=== PATIENT | female | born 1995 | race Caucasian/White ===

== ENCOUNTER 2019-07-31 13:38 | Inpatient (IN) ==
[2019-07-31] MEDS ORDERED: SODIUM CHLORIDE 0.9% 1000ML 1,000 ML IV SCH (14:32)
[2019-07-31] MEDS ORDERED: ACETAMINOPHEN 1,000 MG/100 ML VIAL IV STA (15:24)
[2019-07-31 15:27] LABS: Basophils # (auto) 0.02 K/uL (0-0.2); Basophils % (auto) 0.2 %; Eosinophils # (auto) 0.12 K/uL (0-0.5); Eosinophils % (auto) 1.4 %; Hematocrit (blood only) 41.3 % (37-47); Hemoglobin 14.1 g/dL (12.0-16.0); Immature Granulocytes # (auto) 0.03 K/uL (0.00-0.02); Immature Granulocytes % (auto) 0.3 %; Lymphocytes # (auto) 2.37 K/uL (1.2-3.4); Lymphocytes % (auto) 26.9 %; Mean Corpuscular Hemoglobin 28.9 pg (25-34); Mean Corpuscular Hgb Conc 34.1 g/dL (32-36); Mean Corpuscular Volume 84.6 fL (80-100); Mean Platelet Volume 9.8 fL (7.4-10.4); Monocytes # (auto) 0.48 K/uL (0.11-0.59); Monocytes % (auto) 5.5 %; Neutrophils # (auto) 5.78 K/uL (1.4-6.5); Neutrophils % (auto) 65.7 %; Platelet Count 336 K/uL (130-400); RDW Standard Deviation 39.8 fL (36.4-46.3); Red Blood Count 4.88 M/uL (4.2-5.4)
[2019-07-31 15:45] LABS: Alanine Aminotransferase 22 U/L (12-78); Aspartate Aminotransferase 12 U/L (15-37); BUN Creatinine Ratio 20.3 (10-20); Blood Urea Nitrogen 14 mg/dl (7-18); Calcium 9.4 mg/dl (8.5-10.1); Carbon Dioxide 27 mmol/L (21-32); Chloride 103 mmol/L (98-107); Creatinine Clr Calc Pharmacy 175.2 ml/min; Est GFR (African American) 141.2; Est GFR (Non-African American) 121.8; Glucose 88 mg/dl (70-99); Lipase 80 U/L (73-393); Potassium 4.1 mmol/L (3.5-5.1); Sodium 137 mmol/L (136-145)
[2019-07-31 15:50] LABS: Albumin Globulin Ratio 0.6 (0.9-2); Alkaline Phosphatase 71 U/L (45-117); Bilirubin,Total 0.3 mg/dl (0.2-1); Globulin 4.7 gm/dl (2.5-4.0); Total Protein 7.7 gm/dl (6.4-8.2); Troponin I < 0.015 ng/ml (0-0.045)
[2019-07-31] MEDS ORDERED: OPTIRAY 320 125ml IV PRN (16:05)
--- NOTE | 2019-07-31 16:28 | CT Scan Report ---
CHEST CTA for PULMONARY ARTERIES CT DOSE: 991.32 mGy.cm HISTORY: Positive DVT. Atypical Chest Pain, eval for PE TECHNIQUE: Multiaxial CT images of the chest were performed following the intravenous administration of contrast to evaluate the pulmonary arteries. Maximal intensity projection images were also obtaine d. A dose lowering technique was utilized adhering to the principles of ALARA. COMPARISON STUDY: None. FINDINGS: Multiple scattered small filling defect seen within the segmental and subsegmental patches of the majority of the pulmonary arteries. There is also a small linear nonocclusive filling defect w ithin the right lower lobe pulmonary artery. Findings are consistent with pulmonary embolus. The main pulmonary arteries are patent. No evidence for right-sided heart strain. No pleural or pericardial e ffusions. The heart is normal in size. No mediastinal or hilar lymphadenopathy. Normal esophagus. Hep atic steatosis. The visualized spleen is unremarkable. No fractures within the visualized osseous str uctures. The central airways are patent. No pneumothorax. The lungs are clear. IMPRESSION: Multiple small scattered pulmonary emboli. No evidence for right-sided heart strain. Electronically signed by: Adarsh Wagner M.D. 07/31/2019 4:27 PM
[2019-07-31] MEDS ORDERED: HEPARIN SODIUM/DEXTROSE 25,000 UNITS/500 ML BAG IV SCH (17:00)
[2019-07-31 17:22] LABS: INR 1.1 (0.9-1.1); Partial Thromboplastin Time 27.3 Seconds (21.0-31.0)
[2019-07-31] MEDS ORDERED: Heparin IV Standard *NO* Bolus IV STA (17:23)
--- NOTE | 2019-07-31 17:24 | History & Physical Report ---
Date of Service July 31, 2019 Assessment & Plan (1) Pulmonary embolism: We will start the patient on IV heparin drip per protocol. Consult hematology. We will add tramadol for pain control. Present on Admission?: Yes (2) DVT (deep venous thrombosis): Patient was earlier on Xarelto. Present on Admission?: Yes (3) Morbid obesity with BMI of 60.0-69.9, adult: Advised regarding dietary modifications. Present on Admission?: Yes (4) Chest pain: Chest pain secondary to PE, add tramadol as needed basis. History of Present Illness Chief Complaint: Chest pain Primary Care Provider: Phani Ascencio DO The patient is 23 years old morbidly obese female who was recently diagnosed with right leg DVT on 07/24. She was discharged home on oral Xarelto. Today patient started complaining of right-sided chest pain radiating across the chest. She had associated dyspnea. The further work-up done in the emergency room today shows that the patient has pulmonary embolism. She was started on IV heparin drip and will be admitted for further evaluation and management. No family history of DVT or PE. Her brother has ITP. Patient was on oral contraceptives which she stopped taking last week after she was diagnosed with DVT. Allergies Allergy/AdvReac Type Severity Reaction Status Date / Time No Known Allergies Allergy Unverified 07/31/19 15:41 Home Medications Home Medications Medication Instructions Recorded Confirmed Type rivaroxaban 15 mg PO BID 21 Days #42 tab 07/24/19 07/31/19 Rx acetaminophen [Tylenol Extra 1,000 mg PO Q6H PRN 07/31/19 07/31/19 History Strength] iron 0 mg PO DAILY 07/31/19 07/31/19 History Past Med/Surg History Medical History No pertinent family history No pertinent past medical history Surgical History No pertinent past surgical history Family History Brother Idiopathic thrombocytopenic purpura (ITP) Other No pertinent family history Social History Preferred Language: Peruvian Feels Safe at Home: Yes Smoking Status: Never smoker Review of Systems Review of Systems: All systems reviewed & are unremarkable except as noted in HPI & below Physical Exam Physical Exam: Morbidly obese female GENERAL : No acute distress EYES: No icterus, gaze conjugate NOSE: No evidence of epistaxis MOUTH: No lesions or candidiasis, mucosa moist NECK: Supple LUNGS: CTA B/L, no wheezes, rales or rhonchi HEART: Regular, rate controlled ABDOMEN: Soft, NT, ND, BS Present EXTREMITIES: No LE edema, pedal pulses intact NEURO: A&OX3 Results & Data Vital Signs (Past 12 Hours) Vital Signs Temp Pulse Pulse Resp BP BP Pulse Ox 07/31/19 16:55 83 20 123/66 97 07/31/19 15:17 80 18 140/95 100 07/31/19 13:40 98.1 F 71 18 160/81 H 99 Laboratory Results 07/31/19 15:14 07/31/19 15:14 Diagnostic Findings CHEST CTA for PULMONARY ARTERIES CT DOSE: 991.32 mGy.cm HISTORY: Positive DVT. Atypical Chest Pain, eval for PE TECHNIQUE: Multiaxial CT images of the chest were performed following the intravenous administration of contrast to evaluate the pulmonary arteries. Maximal intensity projection images were also obtained. A dose lowering technique was utilized adhering to the principles of ALARA. COMPARISON STUDY: None. FINDINGS: Multiple scattered small filling defect seen within the segmental and subsegmental patches of the majority of the pulmonary arteries. There is also a small linear nonocclusive filling defect within the right lower lobe pulmonary artery. Findings are consistent with pulmonary embolus. The main pulmonary arteries are patent. No evidence for right-sided heart strain. No pleural or pericardial effusions. The heart is normal in size. No mediastinal or hilar lymphadenopathy. Normal esophagus. Hepatic steatosis. The visualized spleen is unremarkable. No fractures within the visualized osseous structures. The central airways are patent. No pneumothorax. The lungs are clear. IMPRESSION: Multiple small scattered pulmonary emboli. No evidence for right-sided heart strain. Code Status & VTE Plan VTE Prophylaxis Plan VTE Prophylaxis will be ordered: Yes PG Care Time/CCT Total # of Minutes Spent Total Time Spent with Patient: Total time spent is greater than 50% in coordination of care (as documented) at patient's floor/unit and/or counseling patient: 60 min (1) DVT (deep venous thrombosis) Affected thrombotic vein of extremity: peroneal Chronicity: acute DVT location: lower extremity Laterality: right Qualified Code(s): I82.451 - Acute embolism and thrombosis of right peroneal vein
[2019-07-31] MEDS ORDERED: ALUMINUM/MAGNESIUM SUSP 30 ML UDC PO PRN (18:16)
[2019-07-31] MEDS ORDERED: ACETAMINOPHEN 325 MG TAB PO PRN (18:16)
[2019-07-31] MEDS ORDERED: TRAMADOL HCL 50 MG TABLET PO PRN (18:16)
[2019-07-31] MEDS ORDERED: ONDANSETRON INJ 2 MG/ML 2 ML VIAL IV PRN (18:16)
[2019-07-31] MEDS ORDERED: ZOLPIDEM TARTRATE 5 MG TAB PO PRN (18:16)
[2019-07-31] MEDS ORDERED: POLYETHYLENE (MIRALAX) 17 GM PACK PO PRN (18:16)
[2019-07-31] MEDS ORDERED: MAGNESIUM HYDROXIDE SUSP 30 ML UDC PO PRN (18:16)
[2019-07-31] MEDS: HEPARIN SODIUM/DEXTROSE 25,000 UNITS/500 ML BAG IV SCH (18:30)
--- NOTE | 2019-07-31 20:50 | Emergency Department Note ---
General (ED) Blank Date of Service July 31, 2019 I attended to this patient's care in conjunction with Dr. Gilmore; please see his documentation for pertinent details regarding care. : Pulmonary emboli Qualifiers: Pulmonary embolism type: unspecified Chronicity: acute Acute cor pulmonale presence: unspecified Qualified Code(s): I26.99 - Other pulmonary embolism without acute cor pulmonale
--- NOTE | 2019-07-31 22:11 | Emergency Department Note ---
Entered by Kyle Snyder acting as a scribe for Daron Gilmore MD History of Present Illness General Chief complaint: Chest Pain Stated complaint: SEVERE HEADACHES, CHEST PAIN Time Seen by Provider: 07/31/19 14:10 Source: patient History of Present Illness Onset (ago): hour(s) (1.5) Location: chest and right Pain Consistency: + constant Maximum Pain Intensity: 6 Quality: + sharp Associated symptoms: + shortness of breath and + other (dizziness); no cough The patient is a 23 y/o female w/ PMHx DVT who presents to the ED w/ CC of constant, sharp, chest pain beginning 1.5 hours ago. The patient states she was evaluated in the ED last week and diagnosed with a RLE DVT. She reports she was placed on Xarelto and told to avoid strenuous activity. The patient notes she was walking up a flight of stairs today when she developed right sided chest pain that moved to the center of her chest. She states she was short of breath during the on set and did not have a cough. The patient reports for the past few days, she has had an increased frontal headache with some dizziness. Home Medications Home Medications Medication Instructions Recorded Confirmed Type rivaroxaban 15 mg PO BID 21 Days #42 tab 07/24/19 07/31/19 Rx acetaminophen [Tylenol Extra 1,000 mg PO Q6H PRN 07/31/19 07/31/19 History Strength] iron 0 mg PO DAILY 07/31/19 07/31/19 History Allergies Allergy/AdvReac Type Severity Reaction Status Date / Time No Known Allergies Allergy Unverified 07/31/19 15:41 Past Med/Surg History Medical History No pertinent family history No pertinent past medical history Surgical History No pertinent past surgical history Family History Brother Idiopathic thrombocytopenic purpura (ITP) Other No pertinent family history Social History Preferred Language: Bulgarian [employer] Required: No Beliefs That Will Affect Care: None Current Living Situation: Spouse Feels Safe at Home: Yes Smoking Status: Never smoker Hx Alcohol Use: Yes Alcohol type: wine Hx Substance Use: No Review of Systems See HPI for pertinent positives & negatives. and A total of 10 systems reviewed and were otherwise negative Physical Exam Vital Signs Vital Signs - 24 hr 07/31/19 13:40 07/31/19 15:17 Temperature 36.7 C Temperature Source Oral Sepsis Recent Fever Within 48 Hours No Sepsis New/Unexplained Change in Mental Status No Sepsis Action Taken by Nursing No Action Required Pulse Rate 71 Pulse Rate [Apical] 80 Respiratory Rate 18 18 Respiratory Effort / Characteristics Spontaneous Blood Pressure 160/81 H Blood Pressure [Left Arm] 140/95 Blood Pressure Mean 107 Blood Pressure Mean [Left Arm] 110 Blood Pressure Position Sitting Pulse Oximetry 99 100 Oxygen Delivery Method Room Air Room Air GENERAL: Awake, alert, well-appearing, in no distress. BMI of 62.1 kg/m^2 HENT: Normocephalic, atraumatic. Oropharynx unremarkable. EYES: Normal conjunctiva. Sclera non-icteric. NECK: Supple. No nuchal rigidity. FROM. No JVD. RESPIRATORY: CTA bilaterally. CARDIAC: Regular rate, normal rhythm. Extremities warm and well perfused. Pulses equal. ABDOMEN: Soft, non-distended. No tenderness to palpation. No rebound or guarding. No masses. RECTAL: Deferred. MUSCULOSKELETAL: Chest examination reveals no tenderness. The back is symmetrical on inspection without obvious abnormality. There is no CVA tenderness to palpation. No joint edema. LOWER EXTREMITIES: Calves are equal size bilaterally. Tenderness to the RLE. No edema. No discoloration. Positive Cristino's sign for RLE. NEURO: Normal sensorium. No sensory or motor deficits noted. SKIN: No rash or jaundice noted. Course 1421: Past medical records reviewed. The patient was evaluated in room C11B by the resident under my supervision. A complete history and physical exam was performed. 1650: The resident discussed the patient's case with Dr. Coronel, [facility] Hospitalist. He recommended the patient be started on Heparin, and he will evaluate her for further management and care. Administered Medications Heparin Sodium/Dextrose (Heparin Sodium/Dextrose) 25,000 units in 500 mls @ 39 mls/hr IV .[id number] [facility]; Protocol Stop: 08/30/19 17:14 Last Titration: 08/01/19 02:03 Dose: 1,950 units/hr, 39 mls/hr Documented by: [id number] Cosigned by: [id number] Titration: 07/31/19 22:57 Dose: 1,600 units/hr, 32 mls/hr Documented by: [id number] Cosigned by: [id number] Admin: 07/31/19 18:30 Dose: 1,600 units/hr, 32 mls/hr Documented by: [id number] Cosigned by: [id number] Discontinued Medications Heparin Sodium/Dextrose () 1 ea IV NOW STA Stop: 07/31/19 17:24 Last Admin: 07/31/19 18:32 Dose: 1 ea Documented by: [id number] Sodium Chloride (Nss 1000ml) 1,000 mls @ 999 mls/hr IV .Q1H1M KENNY Stop: 07/31/19 15:32 Last Infusion: 07/31/19 16:37 Dose: 0 mls/hr Documented by: [id number] Admin: 07/31/19 15:18 Dose: 999 mls/hr Documented by: [id number] Acetaminophen (Ofirmev) 1,000 mg in 100 mls @ 400 mls/hr IV NOW STA Stop: 07/31/19 15:38 Last Infusion: 07/31/19 16:37 Dose: 0 mls/hr Documented by: [id number] Admin: 07/31/19 15:27 Dose: 400 mls/hr Documented by: [id number] Heparin Sodium/Dextrose (Heparin Sodium/Dextrose) 25,000 units in 500 mls @ 0.02 mls/hr IV .Q24H [facility]; Protocol Stop: 08/30/19 16:59 Last Admin: 07/31/19 21:12 Dose: Not Given Documented by: [id number] Heparin Sodium (Porcine) 7,000 (units/ Syringe) 7 mls @ 10 mls/min IV ONE ONE Stop: 08/01/19 01:48 Last Admin: 08/01/19 02:01 Dose: 10 mls/min Documented by: [id number] Cosigned by: [id number] Ioversol (Optiray 320 125ml) 120 ml IV ONCE PRN PRN Reason: Interaction Checking Stop: 08/04/19 16:04 Last Admin: 07/31/19 16:06 Dose: 120 ml Documented by: [id number] Medical Decision Making Differential Diagnosis Differential diagnoses includes but is not limited to pneumonia, bronchitis, COPD/Asthma exacerbation, pneumothorax, pulmonary embolism, congestive heart failure, acute coronary syndrome. Medical Records Attestation: I reviewed the patient's medical records. Home Medications Current Medication List: was personally reviewed by me Laboratory Data Attestation: I reviewed the patient's lab results. Result diagrams: 07/31/19 15:14 07/31/19 15:14 Lab Results 07/31/19 07/31/19 07/31/19 Range/Units 15:14 15:14 15:14 WBC 8.80 (4.8-10.8) K/uL RBC 4.88 (4.2-5.4) M/uL Hgb 14.1 (12.0-16.0) g/dL Hct 41.3 (37-47) % MCV 84.6 (80-100) fL MCH 28.9 (25-34) pg MCHC 34.1 (32-36) g/dL RDW Std Deviation 39.8 (36.4-46.3) fL RDW Coeff of Dara 13.0 (11.5-14.5) % Plt Count 336 (130-400) K/uL MPV 9.8 (7.4-10.4) fL Immature Gran % (Auto) 0.3 % Neut % (Auto) 65.7 % Lymph % (Auto) 26.9 % [place] % (Auto) 5.5 % Eos % (Auto) 1.4 % Baso % (Auto) 0.2 % Immature Gran # (Auto) 0.03 H (0.00-0.02) K/uL Neut # (Auto) 5.78 (1.4-6.5) K/uL Lymph # (Auto) 2.37 (1.2-3.4) K/uL [place] # (Auto) 0.48 (0.11-0.59) K/uL Eos # (Auto) 0.12 (0-0.5) K/uL Baso # (Auto) 0.02 (0-0.2) K/uL PT (9.0-12.0) Seconds INR (0.9-1.1) APTT (21.0-31.0) Seconds PTT Ratio Sodium 137 (136-145) mmol/L Potassium 4.1 (3.5-5.1) mmol/L Chloride 103 (98-107) mmol/L Carbon Dioxide 27 (21-32) mmol/L Anion Gap 7.0 (3-11) BUN 14 (7-18) mg/dl Creatinine 0.69 (0.6-1.2) mg/dl Est Cr Clr Drug Dosing 175.2 ml/min Est GFR ( Amer) 141.2 Est GFR (Non-Af Amer) 121.8 BUN/Creatinine Ratio 20.3 H (10-20) Glucose 88 (70-99) mg/dl Calcium 9.4 (8.5-10.1) mg/dl Total Bilirubin 0.3 (0.2-1) mg/dl AST 12 L (15-37) U/L ALT 22 (12-78) U/L Alkaline Phosphatase 71 (45-117) U/L Troponin I < 0.015 (0-0.045) ng/ml Total Protein 7.7 (6.4-8.2) gm/dl Albumin 3.0 L (3.4-5.0) gm/dl Globulin 4.7 H (2.5-4.0) gm/dl Albumin/Globulin Ratio 0.6 L (0.9-2) Lipase 80 (73-393) U/L HCG, Quant < 1 mIU/ml 07/31/19 Range/Units 15:14 WBC (4.8-10.8) K/uL RBC (4.2-5.4) M/uL Hgb (12.0-16.0) g/dL Hct (37-47) % MCV (80-100) fL MCH (25-34) pg MCHC (32-36) g/dL RDW Std Deviation (36.4-46.3) fL RDW Coeff of Dara (11.5-14.5) % Plt Count (130-400) K/uL MPV (7.4-10.4) fL Immature Gran % (Auto) % Neut % (Auto) % Lymph % (Auto) % [place] % (Auto) % Eos % (Auto) % Baso % (Auto) % Immature Gran # (Auto) (0.00-0.02) K/uL Neut # (Auto) (1.4-6.5) K/uL Lymph # (Auto) (1.2-3.4) K/uL [place] # (Auto) (0.11-0.59) K/uL Eos # (Auto) (0-0.5) K/uL Baso # (Auto) (0-0.2) K/uL PT 11.0 (9.0-12.0) Seconds INR 1.1 (0.9-1.1) APTT 27.3 (21.0-31.0) Seconds PTT Ratio 1.0 Sodium (136-145) mmol/L Potassium (3.5-5.1) mmol/L Chloride (98-107) mmol/L Carbon Dioxide (21-32) mmol/L Anion Gap (3-11) BUN (7-18) mg/dl Creatinine (0.6-1.2) mg/dl Est Cr Clr Drug Dosing ml/min Est GFR ( Amer) Est GFR (Non-Af Amer) BUN/Creatinine Ratio (10-20) Glucose (70-99) mg/dl Calcium (8.5-10.1) mg/dl Total Bilirubin (0.2-1) mg/dl AST (15-37) U/L ALT (12-78) U/L Alkaline Phosphatase (45-117) U/L Troponin I (0-0.045) ng/ml Total Protein (6.4-8.2) gm/dl Albumin (3.4-5.0) gm/dl Globulin (2.5-4.0) gm/dl Albumin/Globulin Ratio (0.9-2) Lipase (73-393) U/L HCG, Quant mIU/ml Imaging Data Radiologist's Impression: Radiology results as stated below per my review and the radiologist's interpretation: CHEST CTA for PULMONARY ARTERIES CT DOSE: 991.32 mGy.cm HISTORY: Positive DVT. Atypical Chest Pain, eval for PE TECHNIQUE: Multiaxial CT images of the chest were performed following the intravenous administration of contrast to evaluate the pulmonary arteries. Maximal intensity projection images were also obtained. A dose lowering technique was utilized adhering to the principles of ALARA. COMPARISON STUDY: None. FINDINGS: Multiple scattered small filling defect seen within the segmental and subsegmental patches of the majority of the pulmonary arteries. There is also a small linear nonocclusive filling defect within the right lower lobe pulmonary artery. Findings are consistent with pulmonary embolus. The main pulmonary arteries are patent. No evidence for right-sided heart strain. No pleural or pericardial effusions. The heart is normal in size. No mediastinal or hilar lymphadenopathy. Normal esophagus. Hepatic steatosis. The visualized spleen is unremarkable. No fractures within the visualized osseous structures. The central airways are patent. No pneumothorax. The lungs are clear. IMPRESSION: Multiple small scattered pulmonary emboli. No evidence for right-sided heart strain. Electronically signed by: Adarsh Wagner M.D. 07/31/2019 4:27 PM ECG Data Attestation: I personally reviewed and interpreted this ECG as follows: Indication: SOB/dyspnea Rate (beats per minute): 71 Rhythm: normal sinus ECG [place]: Normal ECG Findings: Other (No: PACs, PVCs, ST depression, ST elevation.) Blood Pressure Blood Pressure Findings: Normal blood pressure Blood Pressure Disposition: did not require urgent referral MDM Narrative The patient is a pleasant 23-year-old woman with a past medical history of recent diagnosis of DVT with ultrasound demonstrating below the knee, peroneal thrombus started on Xarelto who presents emergency department with worsening chest pain today despite reporting that she has been taking her Xarelto as prescribed per [facility]. On arrival patient is no acute distress, afebrile stable vital signs. On exam the patient's lungs are clear. EKG without overt acute ischemia. WBC, H/H and platelets within normal limits. Chemistry without acidosis. Troponin negative. Given the patient's recent DVT in the setting of OCPs with new onset chest pain CTA of the chest was performed and did demonstrate multiple small scattered pulmonary emboli. There was no CT evidence for right heart strain. Dr. Semaj Montilla discussed the case with Dr. Coronel, [facility] hospitalist, who evaluate the patient for admission. Given the patient's chest pain and new findings of PEs occur in the setting of being on treatment with Xarelto upon discussion with admitting hospitalist will proceed with treatment with heparin for now. This patient was managed with the assistance of resident, Dr. Semaj Montilla. I discussed the case with the resident, examined the patient, and confirm the findings and plan as documented in this note. Impression & Plan Pulmonary emboli, On rivaroxaban therapy, History of oral contraceptive use, Chest pain, pleuritic Critical Care Time Critical Care Time: Yes Total Critical Care Time: 35 I have personally spent 35 minutes of critical care time in the direct management of this patient. This includes bedside care, interpretation of diagnostic studies, and testing, discussion with consultants, patient, and family members, and other required patient management activities. This 35 minutes is in excess of all separately billable procedures. Discharge Plan Visit Data *Final* Discharge Date/Time: 07/31/19 17:18 Chief Complaint: Chest Pain Stated Complaint: SEVERE HEADACHES, CHEST PAIN ED Provider: Daron Gilmore ED Midlevel Provider: Semaj Montilla Discharge Problem: Pulmonary emboli, On rivaroxaban therapy, History of oral contraceptive use, Chest pain, pleuritic Patient Disposition: Being Evaluated by Hospitalist Discharge Instructions Interventions: ED Discharge Assessment Last Done: 07/31/19 17:18 Discharge Problem: Pulmonary emboli Qualifiers: Pulmonary embolism type: unspecified Chronicity: acute Acute cor pulmonale presence: unspecified Qualified Code(s): I26.99 - Other pulmonary embolism without acute cor pulmonale The scribe's documentation has been prepared under my direction and personally reviewed by me in its entirety. I confirm that the note above accurately reflects all work, treatment, procedures, and medical decision making performed by me.
[2019-08-01 00:14] VITALS: O2SAT 97
[2019-08-01 01:40] LABS: Partial Thromboplastin Ratio 1.1; Partial Thromboplastin Time 28.7 Seconds (21.0-31.0)
[2019-08-01] MEDS ORDERED: HEPARIN IV BOLUS 7,000 UNITS in SYRINGE 0 ML IV ONE (01:47)
[2019-08-01 08:27] LABS: Partial Thromboplastin Ratio 1.4; Partial Thromboplastin Time 37.1 Seconds (21.0-31.0)
[2019-08-01] MEDS: HEPARIN SODIUM/DEXTROSE 25,000 UNITS/500 ML BAG IV SCH (09:07)
[2019-08-01] MEDS ORDERED: HEPARIN IV BOLUS 7,000 UNITS in SYRINGE 0 ML IV SCH (09:15)
[2019-08-01] MEDS ORDERED: WARFARIN SOD 10 MG TAB PO ONE (12:13)
[2019-08-01 15:42] LABS: Partial Thromboplastin Ratio 1.6
[2019-08-01 15:48] VITALS: BP 123/82; TEMP 98.6
--- NOTE | 2019-08-01 16:09 | Discharge Summary ---
Date of Service August 01, 2019 Admission HPI Per Admitting Provider The patient is 23 years old morbidly obese female who was recently diagnosed with right leg DVT on 07/24. She was discharged home on oral Xarelto. Today patient started complaining of right-sided chest pain radiating across the chest. She had associated dyspnea. The further work-up done in the emergency room today shows that the patient has pulmonary embolism. She was started on IV heparin drip and will be admitted for further evaluation and management. No family history of DVT or PE. Her brother has ITP. Patient was on oral contraceptives which she stopped taking last week after she was diagnosed with DVT. Principal Diagnosis Pulmonary embolism Discharge Exam Constitutional WD/WN, vitals as above + obese Eyes PERRL, conjunctivae normal, anicteric sclerae ENMT external ear and nose normal, oropharynx normal Neck trachea midline, no thyromegaly Respiratory normal respiratory effort, lungs clear to auscultation Cardiovascular RRR, no murmur, no edema Gastrointestinal (Abdomen) normal bowel sounds, soft, nontender, no hepatosplenomegaly Musculoskeletal no cyanosis or clubbing, extremities motor strength 5/5 Skin no rashes, warm and dry Neurologic patellar DTR's 2+ bilat, sensation intact and PERRL, EOMI, accommodation nl, no face palsy, no dysarthria Psychiatric A+Ox3, euthymic affect Lymphatic no cervical or axillary lymphadenopathy Discharge Data Allergies Allergy/AdvReac Type Severity Reaction Status Date / Time No Known Allergies Allergy Unverified 07/31/19 15:41 Consultations 07/31/19 19:09 ED Decision to Admit Stat Ordered Studies 07/31/19 14:25 CT angio chest PE protocol Stat Hospital Course (1) Pulmonary embolism: patient was on Xarelto for her DVT presented with chest pain, found to have small bilateral PE on CTA Xarelto is not preferable for this patient because her BMI is > 120kg [place] 149kg discussed with Dr. Cortez, he recommends Lovenox and transition to Coumadin gave her a dose of Lovenox 150mg, prescribed a 5 day supply for her to start tomorrow gave her Coumadin 10mg x 1, prescription for 5mg tablets will follow up with the coagulation clinic 08/02 risk factors for DVT and then PE were obesity, recently taking hormone control medication, long car ride to [place] three weeks ago and then [place] two weeks ago (2) DVT (deep venous thrombosis): failed Xarelto due to BMI of 149kg d/c on Lovenox, start on Coumadin will be managed by coagulation clinic (3) Morbid obesity with BMI of 60.0-69.9, adult: Advised regarding dietary modifications. (4) Chest pain: Chest pain secondary to PE, add tramadol as needed basis. 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 for follow up, medication copays etc) Discharge Plan Discharge Items Patient Disposition: Home - Self-Care Reason For Visit: PE Discharge Diagnosis: Pulmonary embolism Popliteal DVT Condition on Discharge: Good Goals: treat pulmonary embolism with Lovenox and Coumadin follow up with coagulation clinic tomorrow at 10:45 Activity: Resume your previous activity Non-emergency contact: Primary Care Provider Call non-emergency contact if: you have any medication questions, your symptoms worsen and you have a fever Follow-up/Referrals: [facility] [Provider Group] - 08/02/19 10:45 am (Please, follow up at [facility] TOMORROW, August 02 at 10:45 am. *The clinic is located in the rear of this hospital building. Park behind the hospital in [address] and enter via [facility]. If you need to change this appointment, call Central Scheduling at [phone].) Phani Ascencio DO [Primary Care Provider] - 08/09/19 10:10 am (Please, follow up with Dr. Ascencio on August 09 at 10:10 am. *The office is located at [address] [place] [address] in [place], next to [facility]. *If you need to change this appointment, call the office at [phone].) Diet: Regular Addtl Attending Provider Instructions: Medications: - Lovenox: 150mg injection twice a day for 5 days while your Coumadin becomes therapeutic, next dose would be tomorrow morning - Coumadin: 10mg given today in the hospital, next dose would likely be 5mg daily starting tomorrow afternoon, however, you will see the coagulation clinic tomorrow DVT and small pulmonary embolisms, bilateral vitals are stable, no hypoxia Plan for Lovenox 150mg twice a day for 5 days while Coumadin is started you will follow up with the coagulation clinic at 1045 tomorrow here at [facility] FOLLOW UP - coagulation clinic tomorrow at 1045 - Dr. Ascencio in 1-2 weeks, call for appointment Pending Studies at Discharge: No Stand-Alone Forms: My [facility], Work/School Release (Inpt), Smoking Cessation Medications and DC Order Prescriptions: New warfarin [Coumadin] 5 mg tablet 5 mg PO DAILY Qty: 30 RF: 0 enoxaparin [Lovenox] 150 mg/mL syringe 150 mg SQ Q12H Qty: 10 RF: 1 Continued acetaminophen [Tylenol Extra Strength] 500 mg Tablet 1,000 mg PO Q6H PRN (Reason: Pain) RF: 0 iron 18 mg Tablet PO DAILY RF: 0 Discontinued rivaroxaban 15 mg tablet 15 mg PO BID 21 Days Qty: 42 RF: 0 Discharge Orders: Discharge Order (Routine); Ordered 08/01/19 Ordered By: Sumeet Leigh Admission Data Admit Date/Time: 07/31/19 16:53 Attending Provider: Sumeet Leigh Admit Provider: Romaine Coronel Primary Care Provider: Phani Ascencio Other Providers: Romaine Coronel Other Interventions: Discharge Summary Assessment (RN) Last Done: 08/01/19 17:19 DC Date/Time DO NOT enter until pt leaves facility: 08/01/19 19:05
[2019-08-01] MEDS ORDERED: HEPARIN IV BOLUS 4,000 UNITS in SYRINGE 0 ML IV ONE (16:45)
[2019-08-01] MEDS ORDERED: ENOXAPARIN 150 MG/ML SYR SQ SCH ×2 (17:00→18:30)
[2019-08-01] MEDS ORDERED: ENOXAPARIN 1 MG/KG SC SCH (17:00)
[2019-08-01 17:20] VITALS: PULSE 64
[2019-08-01] MEDS ORDERED: Nursing to Pharmacy Communication ONE (18:22)
== END 2019-08-01 19:05 | disposition home or self-care (01) | DRG 176 ==
LOC: ED 13:38 → SUATTDRO 16:53 → 2S 16:53